=== PATIENT | male | born 1960 | race Caucasian/White ===

== ENCOUNTER 2024-10-21 09:17 | Emergency (ER) | payer MEDICARE, SELFPAY ==
[2024-10-21 09:37] VITALS: BP 147/76
--- NOTE | 2024-10-21 10:02 | ED.GENMED ---
History of Present Illness
General
Chief Complaint: Generalized Pain
Source: patient
Exam Limitations: none
Time Seen by Provider: 10/21/24 09:48
History of Present Illness
History of Present Illness:
64yoM with a history of hypertension, hyperlipidemia, and lymphoma treated in [id number] currently in remission presenting for evaluation of subjective fevers and chills. Symptoms began 4 days ago. He reports cyclic episodes of teeth chattering,
chills, and body aches. He then has periods that he feels normal. He reports objective fevers but has not been checking his temperatures. He did have some night sweats yesterday evening. He has a dry cough, nausea, and decreased appetite. He is
otherwise asymptomatic and denies any rashes, vomiting, diarrhea, abdominal pain, dysuria. Of note, patient was recently traveling to the [place] in [place]. He states he was kayaking for 3 hours in the [place] the day before his symptoms
began. He remembers swatting a fly off of his leg during his trip but denies any obvious bite wounds. Patient is concerned that he may have malaria.
Phy Exam
General Physical Exam
General Presentation: well appearing and no apparent distress
General age: appears stated age
General Skin: warm and dry
General Habitus: normal
General Mental: alert
ENT Exam
ENT Exam: TM's normal, pharynx normal, neck supple and normocephalic
Cardiovascular Exam
Cardiovascular Exam: regular rate/rhythm
Pulmonary Exam
Pulmonary Exam: lungs clear, no respiratory distress, no rales, no crackles, no rhonchi and no wheezing
Neurological Exam
Neurological Exam: alert
Hindman Coma Scale
Eye Opening: Spontaneous
Verbal Response: Oriented
Motor Response: Obeys Commands
GCS Total Score: 15
Skin Exam
Skin Exam: normal color and warm/dry
Psychiatric Exam
Psychiatric Exam: normal mood/affect
Course
Orders/Labs/Results
Orders:
Orders
10/21/24 09:56
0.9% Sodium Chloride 1000 ml [Nss] 1,000 ml IV BOLUS
10/21/24 09:57
CR Chest - 2 Views Urgent
Comment:
Reason For Exam: cough
10/21/24 10:03
COVID-19 Antigen Urgent
Source: Nasal Swab
Complete Blood Count/With Diff Urgent
Comprehensive Metabolic Panel Urgent
Lyme Progressive Urgent
Influenza A+B Rapid Molecular Urgent
BUZZ Source: Nasal Swab
Specimen Description:
Abnormal Lab Results
10/21/24
10:03
WBC 12.0 H 10^3/uL
(4.8-10.8)
MCH 32.3 H pg
(27.0-31.0)
Abs Immat Gran (auto) 0.1 H 10^3/uL
(0-0.05)
Absolute Neuts (auto) 9.5 H 10^3/uL
(1.4-6.5)
Absolute Lymphs (auto) 1.1 L 10^3/uL
(1.2-3.4)
Absolute Monos (auto) 1.3 H 10^3/uL
(0.1-0.6)
Neutrophils % 79.8 H %
(42.2-75.2)
Lymphocytes % 8.8 L %
(20.5-51.1)
Monocytes % 10.7 H %
(1.7-9.3)
BUN 22 H mg/dl
(9-20)
Glucose 110 H mg/dl
(70-99)
10/21/24 10:03
10/21/24 10:03
Vital Signs
Initial and Last Documented VS:
Initial Vital Signs
Temp Pulse Resp Pulse Ox
98.5 F 91 16 97
10/21/24 09:34 10/21/24 09:34 10/21/24 09:34 10/21/24 09:34
Last Documented Vital Signs
Temp Pulse Resp BP Pulse Ox
98.5 F 85 16 138/79 98
10/21/24 09:34 10/21/24 12:02 10/21/24 12:02 10/21/24 12:02 10/21/24 12:02
MDM/Problems Addressed
Differential Diagnosis Includes:
64yoM here with body aches, chills, and subjective fevers x 4 days. Started after returning from a trip to the [place]. Also having a dry cough. VSS and temp is 98.5 on arrival. He is well appearing in no distress. Exam is reassuring.
Differential diagnosis includes but is not limited to: viral illness, pneumonia, patient concerned for malaria which is less likely as [place] is not an endemic area
Initial ED plan: Check CBC, CMP, COVID/flu swab, Lyme testing, and CXR. IV fluid bolus.
*Critical Care Note
Total Time (30-74mins, 75-104mins- exclusive of procedures): Not Applicable
Update Note
Update Note:
White count is elevated at 12. Remainder of labs unremarkable. COVID/flu swab negative. CXR shows a patchy left midlung opacity suspicious for pneumonia which is the likely cause of his symptoms. No indication for hospitalization. He was started on
a course of Augmentin and azithromycin. Advised close f/u with PCP and ED return precautions discussed. Patient in agreement with plan and was discharged in stable condition.
ED Attending Note
-
Portions of this chart may have been created with voice recognition software.� Occasional wrong word or��sound alike� substitutions may have occurred due to the inherent limitations of voice recognition software.
Discharge Plan
Departure
Patient Disposition: Home (Routine Discharge)
Date of Disposition: 10/21/24
Time of Disposition: 11:47
Patient with high blood pressure during this ER visit?: Yes
Discharge Problem:
Pneumonia
Instructions: Pneumonia in adults - Discharge instructions
Prescriptions:
New
amoxicillin-pot clavulanate 875-125 mg tablet
1 tab PO BID Qty: 14 0RF
azithromycin [Zithromax] 250 mg tablet
250 mg PO DAILY Qty: 6 0RF
Rx Instructions:
Take 500mg on day 1 followed by 250mg the next 4 days.
No Action
amlodipine 5 MG tablet
5 mg PO DAILY
simvastatin 40 MG tablet
40 mg PO DAILY
oxycodone-acetaminophen 5 MG/325 MG tablet
1 tab PO Q4HPRN PRN (Reason: pain)
Vitamin B12
1 tab sublingual DAILY
tamsulosin 0.4 MG capsule
0.8 mg PO DAILY Qty: 7 0RF
ondansetron HCl 4 MG tablet
4 mg PO TIDPRN PRN (Reason: nausea) Qty: 20 0RF
oxycodone-acetaminophen 5 MG/325 MG tablet
1 tab PO Q4HPRN PRN (Reason: severe pain) Qty: 15 0RF
Referrals:
Armand Melgar DO [Family Provider] -
Activity Restrictions/Additional Instructions:
Take antibiotics as prescribed. Drink plenty of fluids and rest. Take Tylenol as needed for fevers.
Please call your family doctor today to schedule a follow-up appointment in the next 3 to 4 days. Return to the ER with any new or worsening including trouble breathing.
Interventions
Interventions:
*Risk Screen - Suicide Last Done: 10/21/24 09:54
*General Assessment Last Done: 10/21/24 09:54
*Neglect/Abuse Screening Last Done: 10/21/24 09:54
*ED- Fall Risk Assessment Last Done: 10/21/24 09:54
*ED COVID-19 Vaccine History Last Done: 10/21/24 09:54
*Nursing Disposition Last Done: 10/21/24 12:03
ED- Pulmonary Assessment Last Done: 10/21/24 09:54
Discharge Date and Time
Discharge Date/Time: 10/21/24 12:10
Print Language: GERMAN
[2024-10-21] MEDS: NSS 1000 IV (10:04)
[2024-10-21 10:11] VITALS: BMI 25.7
[2024-10-21 10:16] LABS: % Basophils 0.2 % (0-2); % Eosinophils 0.1 % (0-6); % Immature Granulocytes 0.4 % (0-0.5); % Lymphocytes 8.8 % (20.5-51.1); % Monocytes 10.7 % (1.7-9.3); % Neutrophils 79.8 % (42.2-75.2); Absolute Immature Granulocytes 0.1 10^3/uL (0-0.05); Absolute Lymphocytes 1.1 10^3/uL (1.2-3.4); Absolute Monocytes 1.3 10^3/uL (0.1-0.6); Absolute Neutrophils 9.5 10^3/uL (1.4-6.5); Hematocrit 44.4 % (39.0-52.0); Hemoglobin 15.4 g/dL (13.0-18.0); Mean Corp Hgb Conc. 34.7 g/dL (33.0-37.0); Mean Corpuscular Hgb 32.3 pg (27.0-31.0); Mean Corpuscular Volume 93.1 fL (80.0-94.0); Mean Platelet Volume 9.1 fL (7.4-10.4); Nucleated Red Blood Cells % 0 % (-); Platelet Count 173 10^3/uL (130-400); Red Blood Cell Count 4.77 10^6/uL (4.70-6.10); Red Cell Dist. Width 12.4 % (11.5-14.5)
[2024-10-21 10:31] LABS: ALT (SGPT) 35 U/L (0-50); AST (SGOT) 29 U/L (17-59); Albumin 4.6 g/dl (3.5-5.0); Alkaline Phosphatase 91 U/L (38-126); Blood Urea Nitrogen 22 mg/dl (9-20); Calcium 9.5 mg/dl (8.4-10.2); Carbon Dioxide 26 mmol/L (22-30); Chloride 101 mmol/L (98-107); Estimated Creatinine Clearance 58 ml/min; Glucose 110 mg/dl (70-99); Potassium 4.5 mmol/L (3.5-5.1); Sodium 137 mmol/L (135-145); Total Bilirubin 0.9 mg/dl (0.2-1.3); Total Protein 7.4 g/dl (6.3-8.2); eGFR > 60.00
[2024-10-21 10:34] LABS: COVID-19 Antigen Negative (Negative)
[2024-10-21 12:02] VITALS: BP 138/79
== END 2024-10-21 12:10 | disposition home or self-care (01) ==
LOC: EMR 09:17
PROVIDERS: Physician Assistant; EMERGENCY PHYSICIAN Emergency Medicine; FAMILY PHYSICIAN Family Medicine
DX: J18.9 Pneumonia, unspecified organism (principal); I10 Essential (primary) hypertension; E78.00 Pure hypercholesterolemia, unspecified; Z85.72 Personal history of non-Hodgkin lymphomas
CPT/HCPCS: 99283; 96360; 71046; 80053; 85025; 86618; 87502; 87811